=== PATIENT | male | born 2000 | race Hispanic/Latino ===

== ENCOUNTER 2025-01-21 08:59 | Emergency (ER) | payer BC, MEDICAID ==
[~2025-01-21] VITALS: Ht 172.7 cm; Wt 99.8 kg
--- NOTE | 2025-01-21 09:08 | ERN ---
General Chief Complaint: Rapid Heart Rate Stated Complaint: RAPID PULSE RATE Time Seen by MD: 09:02 Source: patient History of Present Illness Initial Comments Patient is a 24-year-old male coming in due to elevated heart rate. Patient states that the elevated heart rate began earlier in the morning states it lasted for about an hour and a half and then resolved. He was states he was never had this problem before no chest pain no nausea no vomiting or other complaint. Allergies: Coded Allergies: No Known Drug Allergies (Unverified Allergy, Unknown, 01/21/25) Past Medical History Past Medical History: No Pertinent History Past Surgical History: None ROS Dictation CONSTITUTIONAL: No chills, no fever, no weakness, no diaphoresis, no malaise. HEAD/FACE: No signs of trauma. EENT: No eye pain, no blurred vision, no tearing, no double vision, no ear pain, no ear discharge, no nose pain, no nasal congestion, no throat pain, no throat swelling, no mouth pain. RESPIRATORY: No cough, no orthopnea, no SOB, no stridor, no wheezing. CARDIOVASCULAR: No chest pain, no edema, palpitations, no syncope. GASTROINTESTINAL/ABDOMINAL: No abdominal pain, no constipation, no diarrhea, no nausea, no vomiting. GENITOURINARY: No abnormal discharge, no dysuria, no frequent urination, no he maturia. No complaints of pain in the genitals. MUSCULOSKELETAL: No back pain, no gout, no joint pain, no joint swelling, no m uscle pain, no muscle stiffness, no neck pain. INTEGUMENTARY: No change in color, no change in hair/nails, no dryness, no lesi on, no lumps, no rash. NEUROLOGICAL/PSYCH: No anxiety, not depressed, no emotional problem, no headache, no numbness, no pre-existing deficit, no history of seizures, no tremors, no weakness. HEMATOLOGIC/LYMPHATIC: Not anemic, no history of blood clots, no apparent bleeding, no bruising, glands not swollen. All Systems Negative, Except as Noted. Physical Exam Physical Exam Dictation VITAL SIGNS: Reviewed. GENERAL APPEARANCE: Alert, oriented x3, no acute distress, obese. HEAD AND FACE: Non-traumatic. EYES: PERRL, pink conjunctivas, eyelid no trauma, anterior chamber clear. EARS: Pinnas intact and no signs of trauma or erythema. Ear canals clear and no discharge. TMs no erythema. NOSE: No discharge, no bleeding. OROPHARYNX: Mouth normal, teeth no caries, tongue pink. Pharynx clear, no erythema. Tonsils no exudates, no abscesses noted. Mucous membrane moist. NECK: Supple, non-tender, no thyromegaly, no masses, no JVD, no bruits. BREAST: Deferred. CHEST: No tenderness, no crepitus, no paradoxical movement, no retractions. LUNGS: Clear, well-ventilated, symmetric, no rales, no wheezing, no rhonchi, no stridor, good breath sounds bilaterally. HEART: Regular rate, regular rhythm, no murmur, no gallops. VASCULAR: No peripheral edema. ABDOMEN: Soft, positive bowel sounds, nondistended, no guarding, nontender, no rebound, no masses no hepatomegaly, no splenomegaly, no Lema's sign, no hernias. RECTAL: Deferred. GENITAL: Deferred. NEUROLOGICAL: Normal speech, gross motor function intact, gross sensory function intact. MUSCULOSKELETAL: Neck nontender, full range of motion, back nontender, full range of motion. EXTREMITIES: Nontender, full range of motion. SKIN: Color pink, dry, no turgor, no rash, no lacerations, no abrasions, no contusions. LYMPHATICS: Deferred. Results Laboratory and Microbiology Lab and Micro Result Laboratory Tests Test 01/21/25 09:45 01/21/25 10:30 White Blood Count 7.3 K/uL (4.8-10.8) Red Blood Count 5.80 MIL/uL (4.50-6.20) Hemoglobin 16.4 g/dL (14.0-18.0) Hematocrit 49.4 % (42-54) Mean Corpuscular Volume 85.2 fL (79-99) Mean Corpuscular Hemoglobin 28.3 pg (27.0-33.0) Mean Corpuscular Hemoglobin Concent 33.2 g/dL (32.0-36.0) Red Cell Distribution Width 13.2 % (11.0-15.5) Platelet Count 234 K/uL (130-400) Mean Platelet Volume 10.5 fL (7.5-10.5) Immature Granulocyte % (Auto) 1.0 % (0-1) Neutrophils (%) (Auto) 57.5 % (40.0-77.0) Lymphocytes (%) (Auto) 29.0 % (21.0-51.0) Monocytes (%) (Auto) 8.3 % (3.0-13.0) Eosinophils (%) (Auto) 3.4 % (0.0-8.0) Basophils (%) (Auto) 0.8 % (0.0-5.0) Neutrophils # (Auto) 4.2 K/uL (1.8-7.7) Lymphocytes # (Auto) 2.1 K/uL (1.0-4.8) Monocytes # (Auto) 0.6 K/uL (0.1-1.0) Eosinophils # (Auto) 0.25 K/uL (0.00-0.70) Basophils # (Auto) 0.06 K/uL (0.00-0.20) Absolute Immature Granulocyte (auto 0.07 K/uL (0-1) Nucleated Red Blood Cells 0.0 % (0.0-0.19) Prothrombin Time 10.5 SEC (9.6-11.6) Prothromb Time International Ratio 0.99 (0.85-1.15) Activated Partial Thromboplast Time 27.6 SEC (26.3-35.5) Sodium Level 140 mmol/L (136-145) Potassium Level 4.2 mmol/L (3.5-5.1) Chloride Level 103 mmol/L (101-111) Carbon Dioxide Level 32 mmol/L (21-32) Blood Urea Nitrogen 10 mg/dL (7-18) Creatinine 0.8 mg/dL (0.5-1.3) Glomerular Filtration Rate Calc 125 mL/min (>90) Random Glucose 105 mg/dL (70-105) Total Calcium 9.1 mg/dL (8.5-10.1) Magnesium Level 2.00 mg/dL (1.80-2.40) Total Creatine Kinase 91 U/L (21-232) Troponin I High Sensitivity < 4 ng/L (4-75) L B-Type Natriuretic Peptide 13 pg/mL (0-100) Urine Color LIGHT-YELLOW (YELLOW) Urine Appearance CLEAR (CLEAR) Urine pH 5.5 (5.0-8.0) Urine Specific [place] 1.022 (1.001-1.031) Urine Protein NEGATIVE mg/dL (NEGATIVE) Urine Glucose (UA) NEGATIVE mg/dL (NEGATIVE) Urine Ketones NEGATIVE mg/dL (NEGATIVE) Urine Occult Blood NEGATIVE (NEGATIVE) Urine Nitrate NEGATIVE (NEGATIVE) Urine Bilirubin NEGATIVE mg/dL (NEGATIVE) Urine Urobilinogen 0.2 mg/dL (0.2-1.0) Urine Leukocyte Esterase NEGATIVE Ronnie/uL Urine Opiates Screen NEGATIVE (NEGATIVE) Urine Barbiturates Screen NEGATIVE (NEGATIVE) Urine Phencyclidine Screen NEGATIVE (NEGATIVE) Urine Amphetamines Screen NEGATIVE (NEGATIVE) Urine Benzodiazepines Screen NEGATIVE (NEGATIVE) Urine Cocaine Screen NEGATIVE (NEGATIVE) Urine Marijuana (THC) Screen NEGATIVE (NEGATIVE) Labs Reviewed?: Yes EKG/XRAY/US/CT/MRI EKG Comment 01/21/2025 time 9:20 a.m. Ventricular rate 81 Sinus rhythm [place] [address] wave elevation or depression X-RAY Comment Chest x-ray-NAD [facility] MDM: Differential diagnosis: Anemia, tachycardia, Rationale: Tests considered and ordered secondary to shared decision making include: labs, ECG and radiology Patient is a 24-year-old male coming in to be evaluated for tachycardia. Patient states that the racing heart lasted for about an hour and a half. Patient has been stable throughout ER visit. Patient will be discharged in stable condition I did advised him appropriate follow up with PCP and or diesel service apprentice for ongoing evaluation of tachycardia. ED Course Orders Procedure Category Date Status Time Cbc With Differential LAB 01/21/25 Complete 09:03 Prothrombin Time With LAB 01/21/25 Complete INR 09:03 B-Type Natriuretic LAB 01/21/25 Complete Peptide 09:03 Chest 1vw RAD 01/21/25 Taken 09:03 12 Lead Ekg Tracing- EKG 01/21/25 Logged Technical 09:03 0.9%Nacl 1000ml (Ns PHA 01/21/25 Complete 1000ml) 09:30 Magnesium LAB 01/21/25 Complete 09:03 Creatine Kinase, Total LAB 01/21/25 Complete 09:03 Troponin I High LAB 01/21/25 Complete Sensitivity 09:03 Urinalysis Profile LAB 01/21/25 Complete 09:03 Partial LAB 01/21/25 Complete Thromboplastin Time 09:03 Basic Metabolic Panel LAB 01/21/25 Complete 09:03 Drug Screen Urine LAB 01/21/25 Complete 09:03 Current Medications Medications (Trade) Dose Ordered Sig/Tello Route PRN Reason Start Time Stop Time Status Last Admin Dose Admin Sodium Chloride 1,000 ml @ 0 mls/hr ONCE ONCE IV 01/21/25 09:30 01/21/25 09:31 DC 01/21/25 09:38 Vital Signs Date Time Temp Pulse Resp B/P (MAP) Pulse Ox O2 Delivery O2 Flow Rate FiO2 01/21/25 09:01 98.1 96 16 124/86 98 Room Air 0 DX & DISP Disposition: Discharge Departure Impression: Primary Impression: Anemia Additional Impression: Tachycardia Condition: Stable Scripts Ferrous Sulfate (Ferrous Sulfate) 324 Mg (65 Mg Iron) Tablet.dr 1 TAB PO DAILY for 7 Days, #7 TAB 0 Refills Prov: LYNETTE VEGAS MD 01/21/25 Pantoprazole Sodium (Protonix) 40 Mg Ectab 1 TAB PO DAILY for 30 Days, #30 TAB 0 Refills Prov: LYNETTE VEGAS MD 01/21/25 Additional Instructions: FOLLOW-UP WITH PRIMARY CARE PROVIDER IN 1 TO 2 DAYS. TAKE MEDICATIONS DIRECTED HERE IN THE EMERGENCY ROOM. OKAY TO CONTINUE HOME MEDICATIONS UNLESS OTHERWISE DISCUSSED DURING YOUR VISIT IN THE EMERGENCY ROOM TODAY. RETURN TO YOUR NEAREST EMERGENCY ROOM IF SYMPTOMS WORSEN OR IF THERE IS NO IMPROVEMENT. CALL 911 IF YOU NEED IMMEDIATE ASSISTANCE. TAKE TYLENOL [id number] NEEDED AND IF NO CONTRAINDICATIONS ARE PRESENT. INCREASE ORAL HYDRATION. A WOUND CULTURE OR URINE CULTURE WAS ORDERED HERE IN THE EMERGENCY ROOM DEPARTMENT PLEASE FOLLOW-UP WITH PRIMARY CARE PROVIDER AND ADVISE THEM TO GET REPEAT PORTS FROM OUR FACILITY. IF YOU HAD ANY LAURA WRAP/SPLINTS THAT WERE APPLIED HERE, PLEASE DO NOT REMOVE THEM UNTIL YOU SEE YOUR PRIMARY CARE OR SPECIALTY. Referrals: Referrals: SELF,REFERRAL (PCP) BERNADINE GRIDER MD, LUIS A MD Time of Disposition: 11:12 LYNETTE VEGAS MD Jan 21, 2025 09:08
[2025-01-21] MEDS: 0.9%NACL 1000ML 1,000 ML IV ONE (09:38)
[2025-01-21 09:54] LABS: BASOPHILS # (AUTO) 0.06 K/uL (0.00-0.20); BASOPHILS % (AUTO) 0.8 % (0.0-5.0); EOSINOPHILS # (AUTO) 0.25 K/uL (0.00-0.70); EOSINOPHILS % (AUTO) 3.4 % (0.0-8.0); HEMATOCRIT 49.4 % (42-54); IMMATURE GRANULOCYTE ABSOLUTE 0.07 K/uL (0-1); LYMPHOCYTES # (AUTO) 2.1 K/uL (1.0-4.8); MEAN CORPUSCULAR HEMOGLOBIN 28.3 pg (27.0-33.0); MEAN CORPUSCULAR HGB CONC 33.2 g/dL (32.0-36.0); MEAN CORPUSCULAR VOLUME 85.2 fL (79-99); MONOCYTES # (AUTO) 0.6 K/uL (0.1-1.0); MONOCYTES % (AUTO) 8.3 % (3.0-13.0); NEUTROPHILS # (AUTO) 4.2 K/uL (1.8-7.7); NEUTROPHILS % (AUTO) 57.5 % (40.0-77.0); PLATELET COUNT (AUTO) 234 K/uL (130-400); RED CELL DISTRIBUTION WIDTH 13.2 % (11.0-15.5); WHITE BLOOD COUNT (AUTO) 7.3 K/uL (4.8-10.8)
[2025-01-21 09:59] LABS: CREATININE 0.8 mg/dL (0.5-1.3); POTASSIUM 4.2 mmol/L (3.5-5.1)
[2025-01-21 10:03] LABS: INR 0.99 (0.85-1.15); PROTHROMBIN TIME 10.5 SEC (9.6-11.6)
[2025-01-21 10:05] LABS: PARTIAL THROMBOPLASTIN TIME 27.6 SEC (26.3-35.5)
[2025-01-21 10:36] LABS: B-TYPE NATRIURETIC PEPTIDE 13 pg/mL (0-100)
[2025-01-21 10:47] LABS: APPEARANCE,URINE CLEAR (CLEAR); BILIRUBIN,URINE NEGATIVE (NEGATIVE); COLOR,URINE LIGHT-YELLOW (YELLOW); GLUCOSE, URINE (UA) NEGATIVE (NEGATIVE); KETONES,URINE NEGATIVE (NEGATIVE); LEUKOCYTE ESTERASE ,URINE NEGATIVE Leu/uL (NEGATIVE); NITRATE,URINE NEGATIVE (NEGATIVE); OCCULT BLOOD,URINE NEGATIVE (NEGATIVE); PH,URINE 5.5 (5.0-8.0); PROTEIN,URINE NEGATIVE (NEGATIVE); UROBILINOGEN,URINE 0.2 mg/dL (0.2-1.0)
[2025-01-21 10:53] LABS: AMPHET/METH SCREEN,URINE NEGATIVE (NEGATIVE); BARBITURATE SCREEN, URINE NEGATIVE (NEGATIVE); BENZODIAZEPINES SCREEN,URINE NEGATIVE (NEGATIVE); CANNABINOID SCREEN,URINE NEGATIVE (NEGATIVE); COCAINE SCREEN,URINE NEGATIVE (NEGATIVE); OPIATE SCREEN,URINE NEGATIVE (NEGATIVE); PHENCYCLIDINE SCREEN,URINE NEGATIVE (NEGATIVE)
[2025-01-21 11:04] LABS: ADD UA MICROSCOPIC NO
[2025-01-21] MEDS ORDERED: PANT40TA55 PO (11:14)
[2025-01-21] MEDS ORDERED: FERR324T4 PO (11:14)
[2025-01-21 11:28] VITALS: BP 121/87; PULSE 85; RESP 18; TEMP 98.1; O2SAT 100
--- NOTE | 2025-01-21 12:17 | HMCIMG ---
PORTABLE CHEST RADIOGRAPH INDICATION: tachy COMPARISON: None FINDINGS: Heart size is normal. The pulmonary vascularity and darrick appear normal. No abnormal pulmonary parenchymal opacity or consolidation identified. No significant pleural effusion noted. No pneumothorax detected. IMPRESSION: No radiographic evidence for any acute cardiopulmonary process.
--- NOTE | 2025-01-21 12:34 | EKG ---
[facility] Test Date: 2025-01-21 Test Time: 09:20:06 Pat Name: CHENCHO BRANDON Department: [facility] Patient [place] [facility] [id number] Room: Gender: M Records And Information Manager: [id number] : 2000 Requested By: LYNETTE VEGAS Order Number: [id number] Reading MD: Erik Engle Measurements Intervals [place] Rate: 81 P: 38 [place]: 155 QRS: 53 QRSD: 84 T: 8 QT: 335 QTc: 388 Interpretive Statements Sinus rhythm No previous ECG available for comparison Electronically Signed On 01-21-2025 13:34:03 CDT by Erik Engle Please click the below link to view image of tracing.
== END 2025-01-21 11:27 | disposition home or self-care (01) ==
LOC: EDH 08:59
DX: D64.9 Anemia, unspecified (principal); R00.0 Tachycardia, unspecified
CPT/HCPCS: 99284; 96360; 71045; 82550; 83735; 84484; 80048; 83880; 80305; 85025; 85610; 85730; 81003; 36415; 93005; J7030; 99285